=== PATIENT | male | born 1960 | race Caucasian/White ===

== ENCOUNTER 2019-03-08 19:47 | Emergency (ER) | payer MEDICARE, MEDICAID ==
[~2019-03-08] VITALS: Ht 175.3 cm; Wt 67.9 kg
[2019-03-08] MEDS ORDERED: LIDOcaine 1% 30ml preserv. free vial SQ STA (20:14)
[2019-03-08 20:41] VITALS: BP 137/81
[2019-03-08] MEDS ORDERED: CEPH-572 PO (21:17)
[2019-03-08] MEDS ORDERED: DOXY100C2 PO (21:17)
== END 2019-03-08 21:46 | disposition home or self-care (01) ==
LOC: ER 19:48
DX: L02.511 Cutaneous abscess of right hand (principal); I89.1 Lymphangitis; G89.29 Other chronic pain; Z88.5 Allergy status to narcotic agent; Z79.2 Long term (current) use of antibiotics
CPT/HCPCS: 26010; 87070; 87077; 87186; 99283; J2001